=== PATIENT | female | born 1985 | race Caucasian/White ===

== ENCOUNTER 2017-07-06 08:37 | Emergency (ER) | payer OTHER ==
[2017-07-06 08:50] VITALS: BP 105/59
--- NOTE | 2017-07-06 09:01 | UC ---
Throat Pain/Nasal Stef HPI - HPI Summary HPI Summary: Pt presents with sore throat and sinus pain/pressure/congestion for the last 5 days. She tells me that [facility] yesterday and a strep test was negative and they did not give her any antibiotics. She is here today because her symptoms are persisting and she would like an antibiotic. Has been using a netti pot with mild relief. Denies fever, chills, SOB, chest pain, abdominal pain, n/v/d/c, or body aches - History of Current Complaint Chief Complaint: UCGeneralIllness Stated Complaint: SINUS ISSUE Time Seen by Provider: 07/06/17 08:51 Hx Obtained From: Patient Hx Last Menstrual Period: control Onset/Duration: Gradual Onset Severity: Moderate Pain Intensity: 4 Pain Scale Used: 0-10 Numeric - Allergies/Home Medications Allergies/Adverse Reactions: Allergies Allergy/AdvReac Type Severity Reaction Status Date / Time No Known Allergies Allergy Verified 07/06/17 08:40 PMH/Surg Hx/FS Hx/Imm Hx Previously Healthy: Yes - Surgical History Surgical History: Yes Surgery Procedure, Year, and Place: ACL RECONSTRUCTION x 2 left knee - Family History Known Family History: Positive: Other - [facility] - Social History Occupation: Employed Full-time Lives: Alone Alcohol Use: Occasionally Substance Use Type: None Smoking Status (MU): Never Smoked Tobacco Review of Systems Constitutional: Negative Skin: Negative Eyes: Negative ENT: Sore Throat, Nasal Discharge, Sinus Congestion, Sinus Pain/Tenderness Respiratory: Negative Cardiovascular: Negative Gastrointestinal: Negative Neurological: Negative Psychological: Negative All Other Systems Reviewed And Are Negative: Yes Physical Exam Triage Information Reviewed: Yes Appearance: Well-Appearing, No Pain Distress, Well-Nourished Vital Signs: Initial Vital Signs Temp 97 F 07/06/17 08:46 Pulse 73 07/06/17 08:46 Resp 16 07/06/17 08:46 BP 105/59 07/06/17 08:46 Pulse Ox 100 07/06/17 08:46 Vital Signs Reviewed: Yes Eyes: Positive: Conjunctiva Clear. Negative: Conjunctiva Inflamed, Discharge ENT: Positive: Hearing grossly normal, Pharynx normal, Nasal congestion, Nasal drainage, TMs normal, Sinus tenderness. Negative: Pharyngeal erythema, TM bulging, TM dull, TM red, Tonsillar swelling, Tonsillar exudate, Hoarse voice, Uvula midline Neck: Positive: Supple, Nontender, No Lymphadenopathy Respiratory: Positive: Chest non-tender, Lungs clear, Normal breath sounds, No respiratory distress, No accessory muscle use Cardiovascular: Positive: RRR, No Murmur, Pulses Normal Neurological: Positive: Alert Psychological: Positive: Age Appropriate Behavior Skin: Negative: rashes Throat Pain/Nasal Course/Dx - Course Course Of Treatment: Sinusitis - Differential Dx/Diagnosis Provider Diagnoses: Sinusitis Discharge - Discharge Plan Condition: Stable Disposition: HOME Prescriptions: Amoxicillin PO (*) [Amoxicillin 500 MG CAP*] 500 mg PO Q12H #14 cap Patient Education Materials: Sinusitis (ED) Referrals: No Primary Care Phys,NOPCP [Primary Care Provider] - Additional Instructions: If you develop a fever, shortness of breath, chest pain, new or worsening symptoms - please call your PCP or go to the ED.
== END 2017-07-06 09:08 | disposition home or self-care (01) ==
LOC: UCEAST 08:37
DX: J32.9 Chronic sinusitis, unspecified (principal); Z72.89 Other problems related to lifestyle
CPT/HCPCS: 99212; G0463

== ENCOUNTER 2017-07-11 15:33 | Emergency (ER) | payer OTHER ==
--- OUTSIDE RECORDS SUMMARY | 2017-07-11 15:42 | XMS REPORT ---
:1985 Author [facility] Address [address] [place] [address] Care Team Providers Name Role Phone Jolene Stahl Unavailable Unavailable PROBLEMS ALLERGIES No Information ENCOUNTERS IMMUNIZATIONS No Known Immunizations SOCIAL HISTORY No smoking Hx information available REASON FOR REFERRAL FUNCTIONAL STATUS PLAN OF CARE VITAL SIGNS MEDICATIONS Unknown Medications PROCEDURES No Known procedures RESULTS No Results REASON FOR VISIT MEDICAL (GENERAL) HISTORY
[2017-07-11 16:23] VITALS: BP 102/66
--- NOTE | 2017-07-11 18:25 | UC ---
Throat Pain/Nasal Stef HPI - HPI Summary HPI Summary: began with sinus pain fatigue, congestion on 2/3 rx amoxicillin sx or worsening- -- - History of Current Complaint Chief Complaint: UCRespiratory Stated Complaint: SORE THROAT AND SINUS CONGESTION Time Seen by Provider: 07/11/17 18:08 Hx Obtained From: Patient Hx Last Menstrual Period: 3 months ago ?: No Onset/Duration: Gradual Onset, Lasting Days Severity: Moderate Pain Intensity: 4 Pain Scale Used: 0-10 Numeric Cough: None Associated Signs & Symptoms: Positive: Sinus Discomfort, Nasal Discharge - Allergies/Home Medications Allergies/Adverse Reactions: Allergies Allergy/AdvReac Type Severity Reaction Status Date / Time No Known Allergies Allergy Verified 07/11/17 16:23 PMH/Surg Hx/FS Hx/Imm Hx Previously Healthy: Yes - Surgical History Surgical History: Yes Surgery Procedure, Year, and Place: ACL RECONSTRUCTION x 2 left knee - Family History Known Family History: Positive: Other - [facility] - Social History Occupation: Employed Full-time Lives: With Family Alcohol Use: Occasionally Substance Use Type: None Smoking Status (MU): Never Smoked Tobacco Review of Systems Constitutional: Fever, Fatigue Skin: Negative Eyes: Negative ENT: Nasal Discharge, Sinus Congestion, Sinus Pain/Tenderness Respiratory: Negative Cardiovascular: Negative Gastrointestinal: Negative Genitourinary: Negative Motor: Negative Neurovascular: Negative Musculoskeletal: Negative Neurological: Negative Psychological: Negative Is Patient Immunocompromised?: No All Other Systems Reviewed And Are Negative: Yes Physical Exam Triage Information Reviewed: Yes Appearance: Well-Appearing, No Pain Distress, Well-Nourished Vital Signs: Initial Vital Signs Temp 98.2 F 07/11/17 16:20 Pulse 67 07/11/17 16:20 Resp 12 07/11/17 16:20 BP 102/66 07/11/17 16:20 Pulse Ox 100 07/11/17 16:20 Vital Signs Reviewed: Yes Eye Exam: Normal Eyes: Positive: Conjunctiva Clear ENT: Positive: Normal ENT inspection, Hearing grossly normal, Pharynx normal, Nasal congestion, Nasal drainage, TMs normal, Sinus tenderness, Uvula midline. Negative: Tonsillar swelling, Tonsillar exudate, Trismus, Muffled voice, Hoarse voice, Dental tenderness Dental Exam: Normal Neck exam: Normal Neck: Positive: Supple, Nontender, No Lymphadenopathy Respiratory Exam: Normal Respiratory: Positive: Chest non-tender, Lungs clear, Normal breath sounds, No respiratory distress, No accessory muscle use Cardiovascular Exam: Normal Cardiovascular: Positive: RRR, No Murmur, Pulses Normal, Brisk Capillary Refill Musculoskeletal Exam: Normal Musculoskeletal: Positive: Strength Intact, ROM Intact, No Edema Neurological Exam: Normal Neurological: Positive: Alert, Muscle Tone Normal Psychological Exam: Normal Skin Exam: Normal Throat Pain/Nasal Course/Dx - Course Assessment/Plan: Change to augmentin, add flonase follow with pcp prn - Differential Dx/Diagnosis Provider Diagnoses: Acute Sinusitis Discharge - Discharge Plan Condition: Stable Disposition: HOME Prescriptions: Amoxicillin/Clavulanate TAB* [Augmentin TAB 875*] 875 mg PO BID #20 tab Fluticasone NASAL SPRAY 50MCG* [Flonase NASAL SPRAY 50MCG*] 2 spray BOTH NARES DAILY #1 btl Patient Education Materials: Rhinosinusitis (ED) Referrals: [facility] [Outside] - 1 Week
== END 2017-07-11 19:11 | disposition home or self-care (01) ==
LOC: UCEAST 15:33
DX: J01.90 Acute sinusitis, unspecified (principal)
CPT/HCPCS: 87502; 99212; G0463

== ENCOUNTER 2017-07-24 12:45 | Emergency (ER) | payer OTHER ==
[2017-07-24 13:08] VITALS: BP 97/49
--- NOTE | 2017-07-24 14:10 | UC ---
Niru Bazan Gabriel, scribed for Lisseth Ochoa MD on 07/24/17 at 1341 . Abdominal Pain Female HPI - HPI Summary HPI Summary: This patient is a 32 year old F presenting to [facility] with a chief complaint of ABD pain since 07-22-17.The patient rates the camping pain 4/10 in severity and radiating into her lower back. Pt also reports nausea. Pt forced herself to vomit without relief. Pt states initially felt very bloated, this has improved. Pt states had several episodes of diarrhea - no blood no black. rg, pt vomited with no relief. Patient reports nausea, loose stool, ABD bloating , and decreased appetite. Patient denies blood in stool, fevers, and rashes. Pt just returned from [place] yesterday after leaving early due to the current illness. 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 Additionally, before she left for vacation she took 2 doses of antibiotics for a sinus infection.No OTC meds taken for diarrhea. Pt has been sipping water frequently, little solids Patients medication reviewed during this visit. - History of Current Complaint Chief Complaint: UCAbdominalPain Stated Complaint: ABD CRAMPING Time Seen by Provider: 07/24/17 13:33 Hx Obtained From: Patient Hx Last Menstrual Period: bcp Onset/Duration: Lasting Days, Still Present Severity Initially: Mild Severity Currently: Mild Pain Intensity: 2 Pain Scale Used: 0-10 Numeric Location: Diffuse Radiates: Yes Radiates to: Back Character: Cramping Alleviating Factor(s): Nothing Associated Signs and Symptoms: Positive: Negative - fever, blood in stool, rashes, Decreased Appetite, Other: - loose stool Allergies/Adverse Reactions: Allergies Allergy/AdvReac Type Severity Reaction Status Date / Time No Known Allergies Allergy Verified 07/11/17 16:23 PMH/Surg Hx/FS Hx/Imm Hx Previously Healthy: Yes Other History Of: Negative For: HIV, Hepatitis B - Surgical History Surgical History: Yes Surgery Procedure, Year, and Place: ACL RECONSTRUCTION x 2 left knee - Family History Known Family History: Positive: Other - [facility] Negative: Hypertension, Respiratory Disease, Seizure Disorder - Social History Occupation: Employed Full-time Lives: With Family Alcohol Use: Weekly Substance Use Type: None Smoking Status (MU): Never Smoked Tobacco Review of Systems Constitutional: Fatigue, Other - decreased appetite Gastrointestinal: Abdominal Pain, Diarrhea, Nausea, Other - ABD bloating All Other Systems Reviewed And Are Negative: Yes Physical Exam Triage Information Reviewed: Yes Appearance: Well-Appearing, No Pain Distress, Well-Nourished Vital Signs: Initial Vital Signs Temp 98.4 F 07/24/17 13:01 Pulse 100 07/24/17 13:01 Resp 16 07/24/17 13:01 BP 97/49 07/24/17 13:01 Pulse Ox 98 07/24/17 13:01 Vital Signs Reviewed: Yes Eye Exam: Normal Eyes: Positive: Conjunctiva Clear ENT Exam: Normal ENT: Positive: Hearing grossly normal, Pharynx normal, TMs normal, Other - mmoist Dental Exam: Normal Neck exam: Normal Neck: Positive: Supple, Nontender Respiratory Exam: Normal Respiratory: Positive: Chest non-tender, Lungs clear, Normal breath sounds, No respiratory distress, No accessory muscle use Cardiovascular Exam: Normal Cardiovascular: Positive: RRR, No Murmur Abdomen Description: Positive: Soft, Other: - mild diffuse tender no guarding, no rebound soft + BS Bowel Sounds: Positive: Present Musculoskeletal Exam: Normal Musculoskeletal: Positive: Strength Intact Neurological Exam: Normal Neurological: Positive: Alert Psychological Exam: Normal Psychological: Positive: Normal Response To Family Skin Exam: Normal Abd Pain Female Course/Dx - Course Course Of Treatment: Pt with several days diarrhea. pt orinigally with bloating and nausea. continues with some bloating,but improved. Pt with recent travel to [place], exposed to student with n/v/d and 2 courses of abx. Pt well appearing. urine with ketones. declined zofran. will d/c with stool collection and order. sips. return precaution. pt comfortable and in agreement with plan - Differential Dx/Diagnosis Provider Diagnoses: diarrhea Discharge - Discharge Plan Condition: Stable Disposition: HOME Patient Education Materials: Acute Diarrhea (ED) Referrals: No Primary Care Phys,NOPCP [Primary Care Provider] - Additional Instructions: - You have been given a stool collection kit - bring you stool sample with you order form back to the lab at urgent care for further evaluation - It is important to stay hydrated - drink plenty of non-alcoholic, non- caffinated beverages - frequent sips of liquid is important - water, gatorade, pedialyte, popsicles, jello. If you tolerate this, add bland food - dry toast, scrambled eggs, crackers. Wait until you are feeling better before spicy food, acidic food, cirtic food, dairy - If you develop fevers, increased pain, vomiting or are unable to stay hydrated - it is recommended you go to the emergency department The documentation as recorded by the Niru liz Gabriel accurately reflects the service I personally performed and the decisions made by me, Lisseth Ochoa MD.
== END 2017-07-24 14:35 | disposition home or self-care (01) ==
LOC: UCEAST 12:45
DX: R19.7 Diarrhea, unspecified (principal); R10.84 Generalized abdominal pain; R53.83 Other fatigue; R11.0 Nausea; Z32.02 Encounter for pregnancy test, result negative
CPT/HCPCS: 81003; 84702; 99211; G0463

== ENCOUNTER 2018-12-30 11:18 | Emergency (ER) | payer OTHER ==
[2018-12-30 12:08] VITALS: BP 85/54
--- NOTE | 2018-12-30 12:25 | UC ---
Throat Pain/Nasal Stef HPI - HPI Summary HPI Summary: Patient is a healthy 33-year-old female here with sore throat and generalized fatigue. Patient was feeling well until last night at 8 PM. Patient started having a sore throat a progressive got worse throughout the night. Patient took Benadryl with some improvement in her pain. Patient has generalized fatigue and slept until 11 AM today which is atypical for her. Patient has associated nasal congestion, "glands in her throat". Patient has no fever, cough, vomiting, diarrhea. Patient has no known sick contacts and is up-to- date on vaccines. Medications reviewed - History of Current Complaint Chief Complaint: UCGeneralIllness Stated Complaint: SORETHROAT/HEADACHE Time Seen by Provider: 12/30/18 12:10 Hx Obtained From: Patient Hx Last Menstrual Period: loestrin Onset/Duration: Sudden Onset Severity: Moderate Pain Intensity: 5 - Allergies/Home Medications Allergies/Adverse Reactions: Allergies Allergy/AdvReac Type Severity Reaction Status Date / Time No Known Allergies Allergy Verified 12/30/18 12:08 PMH/Surg Hx/FS Hx/Imm Hx Previously Healthy: Yes Other History Of: Negative For: HIV, Hepatitis B - Surgical History Surgical History: Yes Surgery Procedure, Year, and Place: ACL RECONSTRUCTION x 2 left knee - Family History Known Family History: Positive: Other - [facility], Non- Contributory Negative: Hypertension, Respiratory Disease, Seizure Disorder - Social History Occupation: Employed Full-time Alcohol Use: Weekly Substance Use Type: None Smoking Status (MU): Never Smoked Tobacco Review of Systems All Other Systems Reviewed And Are Negative: Yes Constitutional: Negative: Fever, Chills, Fatigue Skin: Negative: Rash Eyes: Negative: Blurred Vision, Diplopia ENT: Positive: Negative, Sore Throat, Sinus Congestion. Negative: Nasal Discharge, Sinus Pain/Tenderness Respiratory: Negative: Shortness Of Breath, Cough Cardiovascular: Negative: Palpitations, Chest Pain Gastrointestinal: Negative: Abdominal Pain, Vomiting, Diarrhea Genitourinary: Negative: Dysuria, Hematuria Physical Exam - Summary Physical Exam Summary: Vital Signs Reviewed: Yes A+Ox3, no distress Eyes: Conjunctiva Clear, [place]. EOM intact and full ENT: Hearing grossly normal TM x 2 with serous fluid but no erythema, moist, uvula midline, mildly swollen tonsils with no exudate, no erythema Neck: Positive: Supple. Multiple tender anterior cervical lymph nodes Respiratory: Positive: No respiratory distress, No accessory muscle use + CTA throughout no w/r Cardiovascular: RRR nl s1, s2 no m/r CBT <2 sec abd soft + BS nt/nd no guarding, no distension. No splenomegaly Musculoskeletal Exam: VILLEGAS x 4 without difficulty Strength Intact, ROM Intact Neurological: Positive: Alert, + sensation throughout Psychological: Positive: Normal Response To Family Skin: Positive: no rash, no ecchymosis Triage Information Reviewed: Yes Vital Signs: Initial Vital Signs Temp 98 F 12/30/18 12:06 Pulse 82 12/30/18 12:06 Resp 16 12/30/18 12:06 BP 85/54 12/30/18 12:06 Pulse Ox 100 12/30/18 12:06 Throat Pain/Nasal Course/Dx - Course Course Of Treatment: Patient is here with pharyngitis and generalized fatigue. Patient had no signs of the infection. Patient has a negative rapid strep test. Patient had a Monospot sent which will be followed up on tomorrow. Patient was offered Decadron here but declined. Patient is given a [id number] prescription for tomorrow Decadron and she is not feeling better. - Differential Dx/Diagnosis Differential Diagnosis/HQI/PQRI: Laryngitis, Mononucleosis, Pharyngitis, Sinusitis, Tonsillitis, URI Provider Diagnosis: Pharyngitis, Fatigue, Lymphadenopathy Discharge - Sign-Out/Discharge Documenting (check all that apply): Patient Departure All imaging exams completed and their final reports reviewed: No Studies - Discharge Plan Condition: Stable Disposition: HOME Prescriptions: Dexamethasone [Decadron] 12 mg PO ONCE #3 tablet Patient Education Materials: Pharyngitis (ED) Referrals: [facility] [place] [facility] [Outside] No Primary Care Phys,NOPCP [Primary Care Provider] - Additional Instructions: Please take your dose of steroids tomorrow if you're not feeling better Please use ibuprofen for pain Please use Benadryl for allergic symptoms Please return immediately to the emergency department if you have inability to swallow, change in her voice, any other concerning symptoms - Billing Disposition and Condition Condition: STABLE Disposition: Home
--- NOTE | 2018-12-31 09:12 | UC ---
- Progress Note Progress Note: Chart reviewed Monospot negative Stress test is refluxing to EBV antibody No change in plan Course/Dx - Diagnoses Provider Diagnoses: Pharyngitis, Fatigue, Lymphadenopathy Discharge - Sign-Out/Discharge Documenting (check all that apply): Post-Discharge Follow Up All imaging exams completed and their final reports reviewed: No Studies - Discharge Plan Condition: Stable Disposition: HOME Prescriptions: Dexamethasone [Decadron] 12 mg PO ONCE #3 tablet Patient Education Materials: Pharyngitis (ED) Referrals: [facility] [place] [facility] [Outside] No Primary Care Phys,NOPCP [Primary Care Provider] - Additional Instructions: Please take your dose of steroids tomorrow if you're not feeling better Please use ibuprofen for pain Please use Benadryl for allergic symptoms Please return immediately to the emergency department if you have inability to swallow, change in her voice, any other concerning symptoms - Billing Disposition and Condition Condition: STABLE Disposition: Home
[2019-01-01 13:47] LABS: EBV Capsid Ag IgG Ab Positive (Negative); EBV Capsid Ag IgM Ab Negative (Negative); Epstein-Barr Nuclear Antigen Positive (Negative)
== END 2018-12-30 13:06 | disposition home or self-care (01) ==
LOC: UCEAST 11:18
DX: J02.9 Acute pharyngitis, unspecified (principal); R53.83 Other fatigue; R59.0 Localized enlarged lymph nodes
CPT/HCPCS: 36415; 86308; 86664; 86665; 87651; 99212; G0463

== ENCOUNTER 2019-01-14 12:16 | Emergency (ER) | payer OTHER ==
[2019-01-14 12:51] VITALS: BP 104/65
--- NOTE | 2019-01-14 13:07 | UC ---
Abdominal Pain Female HPI - HPI Summary HPI Summary: Patient is a healthy 33-year-old female here with abdominal cramping. Patient went to a barbecue on Saturday. Saturday night, patient developed large quantity of liquid, nonbloody diarrhea. Patient has associated generalized abdominal cramping and nausea. Patient has no fever, chills, vomiting, focal tenderness, dysuria, hematuria, vaginal bleeding, vaginal discharge. Patient's overall feeling better but still has cramping and loose stools. Medications reviewed - History of Current Complaint Chief Complaint: UCAbdominalPain Stated Complaint: ABD PAIN Time Seen by Provider: 01/14/19 12:55 Hx Obtained From: Patient Hx Last Menstrual Period: unknown Onset/Duration: Sudden Onset Timing: Constant Severity Initially: Moderate Severity Currently: Mild Pain Intensity: 5 Allergies/Adverse Reactions: Allergies Allergy/AdvReac Type Severity Reaction Status Date / Time No Known Allergies Allergy Verified 01/14/19 12:51 PMH/Surg Hx/FS Hx/Imm Hx Previously Healthy: Yes Other History Of: Negative For: HIV, Hepatitis B - Surgical History Surgical History: Yes Surgery Procedure, Year, and Place: ACL RECONSTRUCTION x 2 left knee - Family History Known Family History: Positive: Other - [facility], Non- Contributory Negative: Hypertension, Respiratory Disease, Seizure Disorder - Social History Alcohol Use: Weekly Substance Use Type: None Smoking Status (MU): Never Smoked Tobacco Review of Systems All Other Systems Reviewed And Are Negative: Yes Constitutional: Negative: Fever, Chills ENT: Negative: Sore Throat, Nasal Discharge Respiratory: Negative: Shortness Of Breath, Cough Cardiovascular: Negative: Chest Pain Gastrointestinal: Positive: Diarrhea, Nausea. Negative: Vomiting Genitourinary: Negative: Dysuria, Hematuria Physical Exam - Summary Physical Exam Summary: Vital Signs Reviewed: Yes A+Ox3, no distress Eyes: Conjunctiva Clear, PERRL. EOM intact and full ENT: Hearing grossly normal TM x 2 clear, moist, uvula midline, no exudate, no erythema Neck: Positive: Supple Respiratory: Positive: No respiratory distress, No accessory muscle use + CTA throughout no w/r Cardiovascular: RRR nl s1, s2 no m/r CBT <2 sec abd soft + BS nt/nd no guarding, no distension Musculoskeletal Exam: VILLEGAS x 4 without difficulty Strength Intact, ROM Intact Neurological: Positive: Alert, + sensation throughout Psychological: Positive: Normal Response To Family Skin: no rash, no ecchymosis Triage Information Reviewed: Yes Vital Signs: Initial Vital Signs Temp 97.6 F 01/14/19 12:46 Pulse 72 01/14/19 12:46 Resp 18 01/14/19 12:46 BP 104/65 01/14/19 12:46 Pulse Ox 100 01/14/19 12:46 Abd Pain Female Course/Dx - Course Course Of Treatment: Patient is here with symptoms consistent with gastroenteritis. Patient was overall feeling better since her symptoms started continued to have some cramping so she was concerned. Patient had a UA which showed no evidence of dehydration. Patient is not . Patient had a nonfocal abdominal exam. Patient's vitals are overall unremarkable. Patient's symptoms are not consistent with appendicitis at this time the patient is given very strict return precautions for appendicitis particular to the emergency department if she has those symptoms. Patient was discharged with a prescription for Bentyl and Zofran. - Differential Dx/Diagnosis Differential Diagnosis: Appendicitis, Ectopic , Gall Bladder Disease, Urinary Tract Infection, Other - gastroenteritis Provider Diagnosis: Abdominal cramping, Diarrhea, Nausea Discharge - Sign-Out/Discharge Documenting (check all that apply): Patient Departure All imaging exams completed and their final reports reviewed: No Studies - Discharge Plan Condition: Stable Disposition: HOME Prescriptions: Dicyclomine CAP* [Bentyl CAP*] 10 mg PO TID PRN #20 cap PRN Reason: Pain - Moderate Ondansetron TAB* [Zofran 4 MG Tab*] 4 mg PO Q8HR PRN #12 tab PRN Reason: Nausea Patient Education Materials: Gastroenteritis (ED) Print Language: EGYPTIAN Referrals: Shannan Contreras MD [Primary Care Provider] - Additional Instructions: Please stay hydrated with Pedialyte Please use your medications as prescribed Please go to the emergency department if you have severe abdominal pain, blood in your stool, inability to tolerate drinking, not urinating for 12 hours - Billing Disposition and Condition Condition: STABLE Disposition: Home
== END 2019-01-14 13:36 | disposition home or self-care (01) ==
LOC: UCEAST 12:16
DX: R10.9 Unspecified abdominal pain (principal); R19.7 Diarrhea, unspecified; R11.0 Nausea
CPT/HCPCS: 81002; 81025; 87086; 99212; G0463

== ENCOUNTER 2019-07-14 14:58 | Emergency (ER) | payer OTHER ==
--- OUTSIDE RECORDS SUMMARY | 2019-07-14 15:23 | XMS REPORT ---
:1985 Author Organization [facility] Address [address] [place] [address] Care Team Providers Name Role Phone Jolene Stahl Unavailable Unavailable PROBLEMS Type Condition ICD9-CM Code QUP47-MY Code Onset Condition SNOMED Code Dates Status Problem Subacute and N76.3 Active 348403910 chronic vulvitis Problem Pelvic and R10.2 Active 146287533 perineal pain ALLERGIES No Information ENCOUNTERS Encounter Location Date Diagnosis [facility] 103 Jun, Encounter for other OBGYN [facility], general counseling and [place] [phone] advice on contraception Z30.[address] 08 Aug, [facility] [address] [place], gynecological examination [place] [id number] (general) (routine) without abnormal findings Z01.419 ; Encounter for other general counseling and advice on contraception Z30.09 ; Pelvic and perineal pain R10.2 and Other specified noninflammatory disorders of vagina N89.8 [facility] 103 05 Jul, 2018 Encounter for other OBGYN [facility] general counseling and [place] [phone] advice on contraception Z30.[address] 14 Jul, [address] [place], gynecological examination [place] [id number] (general) (routine) with abnormal findings Z01.411 ; Encounter for other general counseling and advice on contraception Z30.09 ; Encounter for screening for malignant neoplasm of cervix Z12.4 ; Other specified noninflammatory disorders of vagina N89.8 and Pelvic and perineal pain R10.2 [facility] 103 Jul, OBGYN [place], [place] [phone] [address] 03 Jul, [address] [place], gynecological examination [place] [phone] (general) (routine) without abnormal findings Z01.419 ; Subacute and chronic vulvitis N76.3 ; Other specified noninflammatory disorders of vagina N89.8 and Encounter for other general counseling and advice on contraception Z30.09 IMMUNIZATIONS No Known Immunizations SOCIAL HISTORY Never Assessed REASON FOR REFERRAL FUNCTIONAL STATUS PLAN OF CARE VITAL SIGNS MEDICATIONS Medication Instructions Dosage Frequency Start Date End Date Duration Status Lo Loestrin Fe orally once a day 1 tab(s) 24h 28 days Active biphasic 10 mcg-1 mg PROCEDURES No Known procedures RESULTS No Results REASON FOR VISIT Refill Insurance Providers [facility] Health Member Patient Patient Patient Patient Patient Subscriber Subscriber Subscriber Group Insurance Plan Plan Plan Plan ID Relationship Address Phone Name Date of ID Name Date of No Type Insurance Insurance Insurance Coverage to Subscriber Address Phone Name Dates Lifetime [phone] Lifetime self Jolene [id number] Benefit [id number] Benefit [place] [employer] [facility] [address] MEDICAL (GENERAL) HISTORY Type Description Date Surgical History ACL 2008 Hospitalization History see above
[2019-07-14 15:27] VITALS: BP 105/62
--- NOTE | 2019-07-14 15:51 | UC ---
Throat Pain/Nasal Stef HPI - HPI Summary HPI Summary: Patient presented to urgent care with 2 weeks of progressive sinus pressure postnasal drip and dental achiness. Patient's been using that he,, Flonase, and Zyrtec with little improvement. Patient states she does get sinus infections a couple times a year. Patient scheduled to take a flight next week and she is concerned that this will be cleared up by them. Patient does report mild yellow discharge when she blows her nose but states she has increasing pressure. No fevers or chills. No nausea or vomiting. Patient's unsure whether she is as her control causes her not to have periods. Patient's medications as noted in the EMR by triage was reviewed this visit. - History of Current Complaint Chief Complaint: UCRespiratory Stated Complaint: CONGESTED Time Seen by Provider: 07/14/19 15:36 Hx Obtained From: Patient Hx Last Menstrual Period: BC Onset/Duration: Gradual Onset Severity: Moderate Pain Intensity: 5 Pain Scale Used: 0-10 Numeric - Allergies/Home Medications Allergies/Adverse Reactions: Allergies Allergy/AdvReac Type Severity Reaction Status Date / Time No Known Allergies Allergy Verified 07/14/19 15:27 Home Medications: Home Medications Pseudoephedrine HCl [Sudafed] 60 mg PO Q6HR 07/14/19 [History Confirmed 07/14/19 ] PMH/Surg Hx/FS Hx/Imm Hx Previously Healthy: Yes Other History Of: Negative For: HIV, Hepatitis B - Surgical History Surgical History: Yes Surgery Procedure, Year, and Place: ACL RECONSTRUCTION x 2 left knee - Family History Known Family History: Positive: Other - [facility], Non- Contributory Negative: Hypertension, Respiratory Disease, Seizure Disorder - Social History Occupation: Employed Full-time Lives: With Family Alcohol Use: Weekly Alcohol Amount: weekends Substance Use Type: None Smoking Status (MU): Never Smoked Tobacco Review of Systems All Other Systems Reviewed And Are Negative: Yes Constitutional: Positive: Negative Skin: Positive: Negative Eyes: Positive: Negative ENT: Positive: Dental Pain - achiness bilateral, Nasal Discharge, Sinus Congestion, Sinus Pain/Tenderness Neurological/Mental Status: Positive: Negative Psychological: Positive: Negative Physical Exam - Summary Physical Exam Summary: Vital Signs Reviewed: Yes A+Ox3, no distress Eyes: Conjunctiva Clear, [place]. EOM intact and full ENT: Hearing grossly normal TM x 2 clear, turbinates inflammed and boggy, L>R + PND + TTP max sinuses L>R , mild frontal area discomfort, mmoist, uvula midline, no exudate, no erythema Neck: Positive: Supple Respiratory: Positive: No respiratory distress, No accessory muscle use + CTA throughout no w/r Cardiovascular: RRR nl s1, s2 no m/r CBT <2 sec abd soft + BS nt/nd no guarding, no distension Musculoskeletal Exam: VILLEGAS x 4 without difficulty Strength Intact, ROM Intact Neurological: Positive: Alert, + sensation throughout Psychological: Positive: Normal Response To examiner Skin: Positive: no rash, no ecchymosis Triage Information Reviewed: Yes Vital Signs: Initial Vital Signs Temp 99.3 F 07/14/19 15:22 Pulse 62 07/14/19 15:22 Resp 14 07/14/19 15:22 BP 105/62 07/14/19 15:22 Pulse Ox 99 07/14/19 15:22 Throat Pain/Nasal Course/Dx - Course Course Of Treatment: Patient presents to urgent care for evaluation of progressive sinus congestion pain for last 2 weeks. Patient's been using several home treatments including [place] pot, Flonase, Zyrtec with little improvement. States this feels it is getting worse and more pressure. Patient states her teeth restrained ache in the upper areas and she is feeling more congested. Patient denies any fevers or chills. On exam vital signs are stable. Patient while appearing nontoxic. Patient does have paranasal tenderness over her mastoid sinus. Exam consistent with rhinosinusitis. Patient scheduled to fly out of town. At this time will treat with antibiotics. Secretion precautions. Continue with Flonase and Zyrtec. We'll prescribe a dose of Diflucan as patient states she gets antibiotic associated vaginal infections. We'll first confirm not before prescribing a patient understanding and agreement with plan. - Differential Dx/Diagnosis Provider Diagnosis: Rhinosinusitis Discharge ED - Sign-Out/Discharge Documenting (check all that apply): Patient Departure All imaging exams completed and their final reports reviewed: No Studies - Discharge Plan Condition: Stable Disposition: HOME Prescriptions: Amoxicillin PO (*) [Amoxicillin 500 MG CAP*] 500 mg PO Q12H #20 cap Fluconazole [Diflucan 150 MG (NF)] 150 mg PO ONCE PRN #1 tab PRN Reason: vaginal yeast infection Fluticasone NASAL SPRAY 50MCG* [Flonase NASAL SPRAY 50MCG*] 2 spray BOTH NARES DAILY #1 btl Patient Education Materials: Rhinosinusitis (ED) Referrals: Shannan Contreras MD [Primary Care Provider] - Additional Instructions: -Take antibiotics as prescribed - Stay well hydrated. Drink plenty of non-alcoholic, non-caffinated beverages. - Alternate ibuprofen (Advil, Motrin) 600mg and Tylenol every 3 hours for pain or fever. Take with food. Do NOT take for more than 4-5 days. - These infections are spread by secretions - do NOT share eating or drinking utensils - clean items you share with other people such as cell phones, computer mouse, TV remote, computer tablets,etc. Once you have been antibiotics for 2 days, change your toothbrush and your pillowcase. - get plenty of restful sleep - continue to use your flonase and zyrtec daily - humidify the air in the room where you sleep - boil water, run a hot steam shower, vaporizer, cups of water by heat register - okay to take over the counter decongestant and cough medication - you have been given a dose dose of diflucan - this will treat antibiotic associated vaginal yeast infection. Eating yogurt with active culture and taking probiotics will also help decrease vaginal yeast infections - contact your doctor or return with questions or concerns - Billing Disposition and Condition Condition: STABLE Disposition: Home
== END 2019-07-14 16:20 | disposition home or self-care (01) ==
LOC: UCEAST 14:58
DX: J32.9 Chronic sinusitis, unspecified (principal)
CPT/HCPCS: 84702; 99212; G0463